=== PATIENT | female | born 1995 | race Caucasian/White ===

== ENCOUNTER 2018-08-07 19:12 | Emergency (ER) | payer MEDICAID, OTHER ==
[~2018-08-07] VITALS: Ht 162.6 cm; Wt 77.1 kg
[2018-08-07 19:22] VITALS: BP 126/90
--- NOTE | 2018-08-07 19:22 | NUR ---
TO BED # 08 VIA W/C, REPORT GIVEN TO SAJI SKAGGS.
--- NOTE | 2018-08-07 19:29 | NUR ---
X-Ray at bedside.
--- NOTE | 2018-08-07 19:38 | NUR ---
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 PT STATES SHE WAS PLAYING BASKETBALL AND JUMPED AND "LANDED WRONG ON ANKLE". PT REPORTS 7/10 SHARP ANKLE PAIN RADIATING TO TOES. PT UNABLE TO BEAR WEIGHT, REQUIRES WC ASSIST. -- TOE MOVEMENT INTACT WITH JOINT WEAKNESS PRESENT. PEDAL PULSES STRONG, IN TACT. CAP REFILL BRISK, <3 SECONDS. -- MODERATE SWELLING PRESENT, NO BRUISING NOTED. -- PMH: CLAUDIO -- RX: LEV AT 1840 PT POSITIONED FOR COMFORT. HOB ELEVATED. BED RAIL UP X 1. BED IN LOWEST POSITION. VSS. NO APPARENT DISTRESS AT THIS TIME.
--- NOTE | 2018-08-07 19:55 | NUR ---
GAUTAM SINGLETON EVALUATING AT BEDSIDE.
[2018-08-07 20:18] VITALS: BP 138/95
--- NOTE | 2018-08-07 20:18 | NUR ---
Patient discharged with v/s stable. Written and verbal after care instructions given and explained. Patient alert, oriented and verbalized understanding of instructions. Ambulatory with steady gait W/ CRUTCHES. All questions addressed prior to discharge. ID band removed. Patient advised to follow up with PMD. Rx of IBUPROFEN given. Patient educated on indication of medication including possible reaction and side effects. Opportunity to ask questions provided and answered.
== END 2018-08-07 20:18 | disposition home or self-care (01) ==
LOC: MED 19:12
DX: S93.402A Sprain of unspecified ligament of left ankle, initial encounter (principal); R03.0 Elevated blood-pressure reading, without diagnosis of hypertension; W18.39XA Other fall on same level, initial encounter; Y93.39 Activity, other involving climbing, rappelling and jumping off; Y92.89 Other specified places as the place of occurrence of the external cause; Y99.8 Other external cause status
CPT/HCPCS: 73610; 99283; Q0092